=== PATIENT | male | born 1990 | race Caucasian/White ===

== ENCOUNTER 2019-02-06 15:22 | Emergency (ER) | payer OTHER ==
[~2019-02-06] VITALS: Ht 188 cm; Wt 95.5 kg
[2019-02-06] MEDS ORDERED: LIDOCAINE 2% MDV 20 ML VIAL SC ONE (18:45)
[2019-02-06 19:30] VITALS: BP 135/77
== END 2019-02-06 19:35 | disposition home or self-care (01) ==
LOC: M ED 15:22
DX: S61.214A Laceration without foreign body of right ring finger without damage to nail, initial encounter (principal); W26.8XXA Contact with other sharp object(s), not elsewhere classified, initial encounter; Y92.138 Other place on military base as the place of occurrence of the external cause; Y99.1 Military activity